=== PATIENT | female | born 1935 | race Caucasian/White ===

== ENCOUNTER 2016-08-23 10:18 | Emergency (ER) | payer MEDICARE, OTHER ==
[~2016-08-23 10:18] MED LIST: ADVAIR 250-501 EACH IH; ADVAIR HFA 230-28 GM IH; ALBUTEROL S3 ML/VIAL IH; ARIMIDEX1 MG PO; CALCIUM CARBON600 MG PO; CALCIUM600 MG PO; COLACE100 MG PO; COREG12.5 MG PO; COREG3.125 MG PO; COUMADIN2.5 MG PO; HYDRALAZINE HCL25 MG PO; IPRAT-ALBUT 0.5-3 ML NEB; LASIX20 MG PO; LEVAQUIN750 MG PO; NITROSTAT0.4 MG SL; NORVASC10 MG PO; OMEPRAZOLE20 MG PO; ONCE DAILY1 EACH PO; PERCOCET 5-3251 EACH PO; PRILOSEC20 M1 PO; PRINIVIL20 MG PO; RANEXA500 MG PO; SYNTHROID75 MCG PO; SYNTHROID88 MCG PO; TAB-A-VITE1 EACH PO; TYLENOL325 MG PO; ZOCOR10 MG PO; ZYRTEC10 MG PO
== END 2016-08-23 18:15 | disposition short-term general hospital (02) ==
LOC: ER 10:18
DX: J93.9 Pneumothorax, unspecified (principal); E11.22 Type 2 diabetes mellitus with diabetic chronic kidney disease; I13.0 Hypertensive heart and chronic kidney disease with heart failure and stage 1 through stage 4 chronic kidney disease, or unspecified chronic kidney disease; N18.9 Chronic kidney disease, unspecified; I50.9 Heart failure, unspecified; I48.91 Unspecified atrial fibrillation; Z90.710 Acquired absence of both cervix and uterus; Z90.13 Acquired absence of bilateral breasts and nipples; Z90.49 Acquired absence of other specified parts of digestive tract; Z98.890 Other specified postprocedural states; Z79.01 Long term (current) use of anticoagulants; Z79.899 Other long term (current) drug therapy; Z88.1 Allergy status to other antibiotic agents; Z88.8 Allergy status to other drugs, medicaments and biological substances
CPT/HCPCS: 36415; 87502; 94640; 96365; 96375

== ENCOUNTER 2016-09-02 15:56 | Emergency (ER) | payer MEDICARE, OTHER | END 2016-09-02 18:58 | disposition short-term general hospital (02) | LOC: ER 15:56 | DX: J96.90 Respiratory failure, unspecified, unspecified whether with hypoxia or hypercapnia (principal); J93.9 Pneumothorax, unspecified; E11.9 Type 2 diabetes mellitus without complications; I10 Essential (primary) hypertension; J44.9 Chronic obstructive pulmonary disease, unspecified; Z90.710 Acquired absence of both cervix and uterus; Z90.49 Acquired absence of other specified parts of digestive tract; Z90.13 Acquired absence of bilateral breasts and nipples | CPT/HCPCS: 36415; 96365; 96366; 96375; 96376; J0171 ==